=== PATIENT | female | born 1985 | race Caucasian/White ===

== ENCOUNTER 2017-02-22 19:51 | Emergency (ER) | payer BC, OTHER ==
[2017-02-22 20:06] VITALS: BP 131/97
--- NOTE | 2017-02-22 20:57 | EDM.PDOC ---
ED HPI GENERAL MEDICAL PROBLEM - General Chief Complaint: Lower Extremity Injury/Pain Stated Complaint: POSS RIGHT ANKLE INJURY Time Seen by Provider: 02/22/17 20:05 Source of Information: Reports: Patient History Limitations: Reports: No Limitations - History of Present Illness INITIAL COMMENTS - FREE TEXT/NARRATIVE: 31 year old female presents for evaluation and treatment of an injury to the right foot and ankle. Patient reports yesterday she was walking. She was unsure exactly what happened but likely stepped on the edge of some pavement and inverted her right ankle. Reports she initially felt ok but throughout the last day has had difficulty walking on the foot due to pain. Currently reports pain to the right lateral ankle and foot and pain with ambulation. No numbness, tingling or bruising to the foot and ankle. Minimal swelling to area. Has been taking ibuprofen which has helped with the discomfort. Location: Reports: Lower Extremity, Right Right Ankle Pain Score (Numeric/FACES): 9 - Related Data Allergies Allergy/AdvReac Type Severity Reaction Status Date / Time azithromycin [From Zithromax] Allergy Rash Verified 02/22/17 20:06 banana Allergy Vomiting Verified 02/22/17 20:06 latex Allergy Hives Verified 02/22/17 20:06 avacodo Allergy Anaphylactic Uncoded 02/22/17 20:06 Shock Home Meds: Home Meds . [No Known Home Meds] 02/22/17 [History] Past Medical History - Past Health History Medical/Surgical History: Denies Medical/Surgical History [employer] History: Reports: Other OB/BYN History: Neurological History: Reports: Headaches, Chronic, Migraines Psychiatric History: Reports: Anxiety, Depression - Past Surgical History HEENT Surgical History: Reports: Oral Surgery, Tonsillectomy GI Surgical History: Reports: Cholecystectomy Musculoskeletal Surgical History: Reports: ORIF Social & Family History - Family History Family Medical History: Noncontributory - Tobacco Use Smoking Status *Q: Never Smoker - Caffeine Use Caffeine Use: Reports: None - Alcohol Use Days Per Week of Alcohol Use: 0 - Recreational Drug Use Recreational Drug Use: No Review of Systems - Review of Systems Review Of Systems: See Below Musculoskeletal: Reports: Joint Pain (right ankle), Joint Swelling (right lateral ankle, minimal) Skin: Denies: Bruising, Erythema, Wound Neurological: Reports: Difficulty Walking. Denies: Numbness, Tingling ED EXAM, GENERAL - Physical Exam Exam: See Below Exam Limited By: No Limitations General Appearance: Alert, WD/WN, No Apparent Distress Respiratory/Chest: No Respiratory Distress Cardiovascular: Normal Peripheral Pulses, Regular Rate, Rhythm Peripheral Pulses: 2+: Posterior Tibial (L), Posterior Tibial (R), Dorsalis Pedis (L), Dorsalis Pedis (R) Extremities: Normal Inspection, Normal Range of Motion, Normal Capillary Refill , Joint Swelling (minimal swelling to the right lateral distal malleolus), Other (tenderness to palpation of the right lateral distal malleolus and the right 5th metatarsal) Neurological: Alert, Oriented, Normal Cognition, No Motor/Sensory Deficits ( reports good sensation to light touch; able to invert, lisa, dorsiflex and plantarflex ankle but causes discomfort) Psychiatric: Normal Affect, Normal Mood Skin Exam: Warm, Dry, Normal Color Course - Vital Signs Last Recorded V/S: Last Vital Signs Temp 37.3 C 02/22/17 20:01 Pulse 94 02/22/17 20:01 Resp 16 02/22/17 20:01 BP 131/97 H 02/22/17 20:01 Pulse Ox 100 02/22/17 20:01 - Radiology Interpretation Free Text/Narrative:: xrays of the right foot and ankle show no acute fractures or dislocations. - Re-Assessments/Exams Free Text/Narrative Re-Assessment/Exam: 02/22/17 21:03 No acute fractures or dislocations appreciated on xray. Reviewed with the patient. she has crutches at home she can use. Encouraged to rest, ice, elevated and use OTC tylenol or motrin for pain. Follow-up with PCP in one week if not much better. Discharge instructions as documented. Departure - Departure Time of Disposition: 21:03 Disposition: Home, Self-Care 01 Condition: Good Clinical Impression: Ankle sprain - Discharge Information Instructions: Ankle Sprain, [id number] Referrals: Rochelle Baca CRECHE ATTENDANT [Primary Care Provider] - Forms: ED Department Discharge Additional Instructions: [id number] Tylenol or Motrin as needed for pain relief. Ice the ankle 4 or 5 times a day for 10-15 minutes each. Use the crutches as needed. Recommend wrapping the ankle with an Naun bandage to help reduce swelling. Recommend elevating the ankle, above the level the heart, to help with swelling. Follow-up with primary care provider if your symptoms are not much better in 1 week. Please return to the ER if your symptoms change or worsen.
--- NOTE | 2017-02-23 07:37 | CR ---
Right foot: Four views of the right foot were obtained. Comparison: No prior right foot exam. Slight deformity of the proximal phalanx of the first digit is seen most likely representing old healed fracture. No acute fracture, dislocation or other bony abnormality is seen. Impression: 1. Findings suspicious for old healed fracture within the first toe. 2. Nothing acute is appreciated on right foot study. Diagnostic code #2
--- NOTE | 2017-02-23 07:37 | CR ---
Right ankle: Four portable views of the right ankle were obtained. Comparison: No previous study. Ankle mortise is symmetric. No fracture, dislocation or other bony abnormality is seen. Impression: 1. No abnormality is identified on right ankle exam. Diagnostic code #1
== END 2017-02-22 21:15 | disposition home or self-care (01) ==
LOC: JD.ED 19:51
DX: S93.401A Sprain of unspecified ligament of right ankle, initial encounter (principal); Z88.1 Allergy status to other antibiotic agents; Z91.040 Latex allergy status; Z91.018 Allergy to other foods; X50.9XXA Other and unspecified overexertion or strenuous movements or postures, initial encounter
CPT/HCPCS: 73610-26-RT; 73610-RT; 73630-26-RT; 73630-RT; 99283

== ENCOUNTER 2021-03-25 17:42 | Emergency (ER) | payer BC ==
--- NOTE | 2021-03-25 19:19 | EDM.PDOC ---
ED HPI GENERAL MEDICAL PROBLEM - General Chief Complaint: Neurological Problem Stated Complaint: DIZZINESS Time Seen by Provider: 03/25/21 18:13 Source of Information: Reports: Patient, Family () History Limitations: Reports: No Limitations - History of Present Illness INITIAL COMMENTS - FREE TEXT/NARRATIVE: Mrs. Bo is a 35 year old woman who states that she has felt dizzy in the form of lightheadedness her entire life, but then she tested positive for the SARS-CoV-2 virus on 02/25/2021, and since then, her dizziness became more vertiginous, non-positional. Initially it would come and go, but was constant today. She also reports that she has been seeing stars her entire life, but that it has been worsening recently. She developed nausea on 03/07/2021, and developed a "static-y" vision yesterday morning, 03/24/2021. She states that she feels generally weak, although denies focal weakness, and denies tingling or numbness. She states that her chiropractor today suggested that she might have unilateral vascular occlusion of a carotid artery, therefore sent her to the walk-in clinic. She states that the walk in clinic was going to order a CT angiogram as well as an MRI and MRA, but decided to send her here, instead. She states that they did check her renal function, although she does not have the results. Here in the ED, the patient is found to be hemodynamically stable, afebrile, saturating 100% on room air. She appears to be comfortable, in no acute distress. Other than the above symptoms, the patient denies having a recent fever, chills, sore throat, ear pain, nasal or sinus congestion, cough, dyspnea, chest pain, palpitations, nausea, vomiting, constipation, diarrhea, abdominal pain, urinary symptoms, recent weight gain or weight loss, recent bloody bowel movements or black bowel movements, recent joint aches, headaches, or rashes. The patient's PCP is JAELYN Ascencio. Her women's health provider is JAELYN Kilgore. She has not received a COVID vaccination, nor an influenza vaccination. Frontal Headache Pain Score (Numeric/FACES): 4 - Related Data Allergies Allergy/AdvReac Type Severity Reaction Status Date / Time avocado Allergy Severe Anaphylactic Verified 03/25/21 18:38 Shock azithromycin [From Zithromax] Allergy Rash Verified 03/25/21 18:36 banana Allergy Vomiting Verified 03/25/21 18:36 latex Allergy Hives Verified 03/25/21 18:36 Home Meds: Home Meds Escitalopram [Lexapro] 10 mg PO DAILY 03/25/21 [History] Past Medical History Genitourinary History: Reports: Renal Calculus : 5 Para: 4 Musculoskeletal History: Reports: Fracture (left wrist) Psychiatric History: Reports: Anxiety, Depression Hematologic History: Reports: Hemochromatosis - Infectious Disease History Infectious Disease History: Reports: Novel Coronavirus (dx'd 02/25/2021) - Past Surgical History HEENT Surgical History: Reports: Adenoidectomy, Oral Surgery (dental extractions), Tonsillectomy GI Surgical History: Reports: Cholecystectomy (around 2016) Female Surgical History: Reports: Kidney stone extraction, Ureteral Stent Social & Family History - Tobacco Use Tobacco Use Status *Q: Never Tobacco User - Caffeine Use Caffeine Use: Reports: None - Alcohol Use Alcohol Use History: Yes Alcohol Use Frequency: Rarely - Recreational Drug Use Recreational Drug Use: No - Living Situation & Occupation Living situation: Reports: , with Spouse, with Family (4 kids) Occupation: Unemployed ED ROS GENERAL - Review of Systems Review Of Systems: Comprehensive ROS is negative, except as noted in HPI. Neurological: Reports: Headache (chronic) ED EXAM, DIZZINESS - Physical Exam Exam: See Below Exam Limited By: No Limitations General Appearance: Alert, WD/WN, No Apparent Distress Eye Exam: Bilateral Eye: EOMI, Normal Inspection, PERRL Ears: Normal External Exam, Normal Canal, Hearing Grossly Normal, Normal TMs Nose: Normal Inspection, Normal Mucosa, No Blood Throat/Mouth: Normal Inspection, Normal Lips, Normal Teeth, Normal Gums, Normal Oropharynx, Normal Voice, No Airway Compromise Head Exam: Atraumatic, Normocephalic Neck: Normal Inspection, Supple, Non-Tender, Full Range of Motion. No: Carotid Bruit, Lymphadenopathy (L), Lymphadenopathy (R) Respiratory/Chest: No Respiratory Distress, Lungs Clear, Normal Breath Sounds, N o Accessory Muscle Use, Other (3+ carotid pulses bilaterally) Cardiovascular: Normal Peripheral Pulses, Regular Rate, Rhythm, No Edema, No Gallop, No JVD, No Murmur, No Rub GI/Abdominal: Normal Bowel Sounds, Soft, Non-Tender, No Organomegaly, No Distention, No Abnormal Bruit, No Mass Neurological: Alert, Normal Dorsiflexion, CN II-XII Intact, Normal Plantar Flexion, No Motor/Sensory Deficits, Oriented x 3 Back Exam: Normal Inspection, Full Range of Motion, NT Extremities: Normal Inspection, Normal Range of Motion, No Pedal Edema, Normal Capillary Refill Psychiatric: Normal Affect Skin Exam: Warm, Dry, Intact, Normal Color, No Rash Course - Vital Signs Last Recorded V/S: Last Vital Signs Temp 37.2 C 03/25/21 19:47 Pulse 70 03/25/21 19:47 Resp 14 03/25/21 19:47 BP 109/75 03/25/21 19:47 Pulse Ox 98 03/25/21 19:47 Orthostatic Blood Pressure [ 130/84 Standing] Orthostatic Blood Pressure [ 112/77 Supine] - Re-Assessments/Exams Free Text/Narrative Re-Assessment/Exam: 03/25/21 19:07 As above, the patient has had lightheadedness her entire life, but her dizziness became more vertiginous after she developed COVID-19 in late February. The vertigo is non-positional. It was coming and going, although she states that it was more constant today. Similarly, seeing stars when standing is chronic, but worsening. Her nausea has been present since 03/07/2021, and she had "static-y" vision yesterday morning. She feels generally weak, but does not have any focal weaknesses. Orthostatics are negative. Her physical examination, including a thorough neurologic examination, is completely normal. She has easily palpable bilateral carotid arteries, and there are no carotid bruits on auscultation. I explained to the patient and her that, based on her history and physical examination, she is not suffering from unilateral carotid artery occlusion. If that were to have happened, it would have caused a large territorial stroke with profound unilateral hemiparesis. I explained that, unfortunately, I do not believe that there are any tests that I can run from the Emergency Department that will shed any light on what is going on. I explained that I am not doubting that there may be something going on, but that the tests available from the ED are intended to determine if the patient's presentation c onstitutes a medical emergency, not for a diagnostic work-up. For example, there is a distinct possibility that the patient's chronic symptoms are made worse by microvascular damage due to COVID-19. For evaluation of that, however, the patient would need to see a Neurologist. I offered to refer the patient to a Neurologist, although the patient then stated that she will return to her PCP and chiropractor. She seems to be upset that I am not able to come up with a diagnostic evaluation, despite my careful explanation. I believe her expectations are unrealistic. Departure - Departure Time of Disposition: 19:23 Disposition: Home, Self-Care 01 Condition: Good Clinical Impression: Dizziness, Visual changes - Discharge Information *PRESCRIPTION DRUG MONITORING PROGRAM REVIEWED*: Not Applicable *COPY OF PRESCRIPTION DRUG MONITORING REPORT IN PATIENT DAWSON: Not Applicable Instructions: Dizziness Referrals: Deisi El PA-C [Primary Care Provider] - Erika Sheikh PA-C [Ordering Only Provider] - Forms: ED Department Discharge Additional Instructions: You were seen in the emergency room for worsening chronic lightheadedness and vertigo and seeing stars, generalized weakness, nausea, and static-y vision, in the setting of having COVID-19 in late February. Work-up in the ER included positional blood pressure checks, which were normal. You are not intravascularly depleted. Your physical exam, including your neurologic examination was normal. You are not suffering from a unilateral occlusion of a carotid artery. As discussed, the cause of your symptoms is not able to be determined from the emergency department. An outside work-up is necessary. Please follow-up with your PCP, JAELYN Ascencio, for referral to a Neurologist. If any other problems, please do not hesitate to return to the ER. Sepsis Event Note (ED) - Evaluation Sepsis Screening Result: No Definite Risk - Focused Exam Vital Signs: Vital Signs Temp Pulse Resp BP Pulse Ox 03/25/21 19:47 37.2 C 70 14 109/75 98 03/25/21 18:28 37.6 C 68 20 128/91 H 100
[2021-03-25 19:53] VITALS: BP 109/75; PULSE 70
== END 2021-03-25 19:48 | disposition home or self-care (01) ==
LOC: JD.ED 17:42
DX: R42 Dizziness and giddiness (principal); H53.9 Unspecified visual disturbance; Z91.040 Latex allergy status; Z91.018 Allergy to other foods; Z88.8 Allergy status to other drugs, medicaments and biological substances; Z86.16 Personal history of COVID-19
CPT/HCPCS: 99284